=== PATIENT | male | born 1940 | race Caucasian/White ===

== ENCOUNTER 2020-01-16 14:32 | Outpatient (REF) | payer MEDICARE, SELFPAY ==
[2020-01-16 18:02] LABS: Alanine Aminotransferase 17 U/L (0-40); Albumin Level 4.4 g/dL (3.5-5.0); Alkaline Phosphatase 158 U/L (39-117); Anion Gap 15 (12-20); Aspartate Amino Transferase 19 U/L (5-37); Bilirubin Total 0.6 mg/dL (0.0-1.0); Blood Urea Nitrogen 19 mg/dL (9-16); Calcium 8.9 mg/dL (8.4-10.2); Carbon Dioxide 24 mmol/L (22-29); Chloride 98 mmol/L (96-108); Estimated Glomerular Filt Rate > 60; Glucose Random 107 mg/dL (60-115); Potassium 4.4 mmol/l (3.3-5.1); Sodium 133 mmol/L (135-145); Total Protein 7.2 g/dL (6.5-8.0)
[2020-01-16 18:19] LABS: Creatinine Urine 100.04 mg/dL; Microalbum/Creatinine Ratio Ur 15.9 ug/mg cr
[2020-01-17 07:56] LABS: Estimated Average Glucose 117 mg/dL; Hemoglobin A1c % 5.7 %
== END 2020-01-16 14:33 | disposition home or self-care (01) ==
LOC: HO.MANLDS 14:32
PROVIDERS: PCP Internal Medicine; Visit Provider Internal Medicine
DX: E11.9 Type 2 diabetes mellitus without complications (principal)
CPT/HCPCS: 80053; 82043; 83036

== ENCOUNTER 2020-05-26 09:15 | Emergency (ER) | payer MEDICARE, SELFPAY ==
--- NOTE | ~2020-05-26 | XR_ITS ---
EXAMINATION: XR HIP, RIGHT and pelvis CLINICAL INFORMATION: Fall. Pain. COMPARISON: None TECHNIQUE: Two views of the right hip and one view of the pelvis. FINDINGS: Bone alignment is normal. No fracture or dislocation is seen. There is arthritis at both hip joints. There is evidence of atherosclerotic disease. XR/XR hip RT w PEL1V IMPRESSION: No fracture or dislocation.
--- NOTE | ~2020-05-26 | CT_ITS ---
EXAMINATION: CT CHEST WITHOUT CONTRAST CLINICAL INFORMATION: Pain post fall COMPARISON: None TECHNIQUE: Multidetector volumetric CT imaging of the chest was done. Axial MIP volume rendering provided. Sagittal and coronal reformatted images were obtained. This CT examination was performed using dose optimization techniques as appropriate, variously including the following: *Automated exposure control *Adjustment of mA and/or kV according to patient size (this includes techniques or standardized protocols for targeted exams where dose is matched to indication/reason for exam; i.e. extremities or head) *Use of iterative reconstruction technique DLP: 468 mGy-cm FINDINGS: LUNGS: The lung volumes are low. There is subsegmental atelectasis at the right lung base. The lungs are otherwise clear. 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 The heart does not appear enlarged. The thoracic aorta is tortuous. There is no pericardial effusion. There are no enlarged mediastinal lymph nodes. PLEURA: There is a small to moderate right pleural effusion. There is no left pleural effusion. There is no pneumothorax. AXILLA: No lymphadenopathy. 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 There are small calcifications in the left kidney questionable for stones. There is evidence of atherosclerotic disease. OSSEOUS STRUCTURES: There are right third through 11th rib fractures that appear recent or acute. There is increased thoracic kyphosis. There is a severe T10 vertebral body compression fracture. There is a moderate T9 vertebral body compression fracture of the inferior endplate. There are also mild compression fractures of the superior endplate of the T5, T6 and T7 vertebral bodies. CT/CT chest wo con IMPRESSION: Small to moderate right pleural effusion. Multiple recent right third through 11th rib fractures. Increased thoracic kyphosis and multiple thoracic spine compression fractures.
--- NOTE | ~2020-05-26 | CT_ITS ---
EXAMINATION: HEAD AND CERVICAL SPINE CT CLINICAL INFORMATION: Trauma. Fall. COMPARISON: None TECHNIQUE: Axial images through the head and cervical spine without contrast. Sagittal and coronal reconstructions on the technologist workstation were performed. Patient dose 959+3 7 3 mg/cm. FINDINGS: Head CT: There is a small subdural hematoma adjacent to the left frontal parietal and temporal lobes. This measures maximum 6 mm in thickness axial image 64 series 13. There is a small amount of extra-axial hemorrhage at the base of the left frontal lobe near the anterior falx as well axial image 85 series 13. There is question of a small amount of hemorrhage versus beam hardening artifact at the base of the right frontal lobe as well axial image 90 series 13. The ventricles and extra-axial CSF spaces are prominent suggestive of generalized atrophy. There is nonspecific periventricular white matter disease. No mass, mass effect or infarct is seen. There is soft tissue swelling over the vertex. No skull fracture is seen. Visualized paranasal sinuses, mastoid air cells and middle ears are clear. Cervical spine CT: There is fracture dislocation at C1-C2. The head is tilted to the left and there is curvature of the proximal cervical spine to the right and distal cervical and proximal thoracic spine to the left. There is a fracture of the posterior arch 4 lamina of C1. There is a type II/type III dens fracture. This involves the midportion of the dens and extends into the C2 vertebral body. There is a fracture of the spinous process of C2. There is abnormal articulation with 9 mm anterior subluxation of the lateral mass of C2 with respect to C1 on the right. There is question of a small evulsion fracture of C1 at the C1 right lateral mass C2 articulation. There is mild 2 mm anterior subluxation of C3 with respect to C4. There is degenerative spondylosis and degenerative disc disease at C4-C5, C5-C6 and C6-C7. There is bilateral multilevel facet arthritis. There is a mild compression fracture of the superior endplate of the T1 vertebral body. There is prevertebral soft tissue swelling adjacent to the proximal cervical spine. There is bilateral carotid calcification. CT/CT cervical spine wo con IMPRESSION: Head CT: Small left subdural hematoma. Small extra-axial hemorrhage adjacent to the base of the left frontal lobe near the falx. Question small amount of extra-axial hemorrhage adjacent to the base of the right frontal lobe versus beam hardening artifact. No mass effect seen. Generalized atrophy and nonspecific periventricular white matter disease. Soft tissue swelling over the vertex. Cervical spine CT: Fracture and dislocation/subluxation at C1-C2. Severe head tilt to the left and subluxation of the right C1 lateral mass articulation. Fracture of the left posterior ring of C1. Probable avulsion fracture of C1 at the right C1 lateral mass articulation. Complex type II/III dens fracture and C2 spinous process fracture. Mild T1 superior endplate compression fracture. Findings were communicated to Dr. Cuello by telephone on 05/26/2020 at 11:50 AM.
[2020-05-26 09:32] VITALS: BP 150/62; PULSE 79; RESP 16; TEMP 36.5; O2SAT 96; BMI 23.7
--- NOTE | 2020-05-26 09:33 | ECG_ITS ---
Test Reason : FALL Blood Pressure : / mmHG Vent. Rate : 079 BPM Atrial Rate : 079 BPM P-R Int : 238 ms QRS Dur : 142 ms QT Int : 418 ms P-R-T Axes : 022 083 023 degrees QTc Int : 479 ms Artfiact in tracing Sinus rhythm with 1st degree A-V block Right bundle branch block Abnormal ECG No previous ECGs available Referred By: Haley Cuello Electronically Signed By:JOSE GUTIERRES
--- NOTE | 2020-05-26 09:35 | ED_ITS ---
HPI - Fall General Chief Complaint: Fall Stated Complaint: DIZZINESS,FALL,HEAD LAC Time Seen by Provider: 05/26/20 09:17 Source: patient and EMS Mode of arrival: EMS Limitations: other (confusion some cognitive impairment) History of Present Illness HPI Narrative: 79 yo male with Parkinson's, DM, ?CAD on aspirin and plavix, falls, was standing and lost balance fell to ground hit head no LOC c/o pain to head and R hip - son was trying to help him to the bathroom and was stubborn to get help, was supposed to be using a walker, fell after declining son's help then fell after losing balance complaint: fall 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) Fall from: standing Fall witnessed: yes, by family Place fall occurred: home Loss of consciousness: none Prolonged down time: no Symptoms prior to fall: dizziness Context: history of frequent falls Location of injury: head and other (R hip) Severity: moderate Quality: dull Associated symptoms (after fall): headache and neck pain Related Data Home Medications Medication Instructions Recorded Confirmed Lactobacillus rhamnosus GG 1 cap PO BID 05/26/20 05/26/20 [Culturelle] acetaminophen 1,000 mg PO Q8H PRN 05/26/20 05/26/20 albuterol sulfate [ProAir HFA] 2 puff INHALATION Q6H PRN 05/26/20 05/26/20 amoxicillin-pot clavulanate 1 tab PO BID 05/26/20 05/26/20 [Augmentin] aspirin 81 mg PO DAILY 05/26/20 05/26/20 clopidogrel 75 mg PO DAILY 05/26/20 05/26/20 docusate sodium [Colace] 100 mg PO BID 05/26/20 05/26/20 famotidine 20 mg PO DAILY 05/26/20 05/26/20 levothyroxine 100 mcg PO DAILY@0630 05/26/20 05/26/20 lidocaine 1 patch TOPICAL DAILY 05/26/20 05/26/20 metoprolol tartrate 25 mg PO BID 05/26/20 05/26/20 nitroglycerin 0.4 mg SUBLINGUAL Q5M PRN 05/26/20 05/26/20 polyethylene glycol 3350 [Miralax] 17 g PO BID 05/26/20 05/26/20 ranolazine [Ranexa] 500 mg PO BID 05/26/20 05/26/20 sennosides [senna] 8.6 mg PO BID 05/26/20 05/26/20 tamsulosin 0.8 mg PO DAILY 05/26/20 05/26/20 Allergies Allergy/AdvReac Type Severity Reaction Status Date / Time No Known Allergies Allergy Verified 05/26/20 09:51 Review of Systems Review of Systems: Constitutional : No Fever, No Chills ENT/Mouth : No Ear Pain, No Hoarseness, No sore throat Eyes: No Eye Pain, No Swelling, No Redness, No Foreign Body Cardiovascular : No Chest Pain, No SOB Respiratory : No Cough, No Dyspnea Gastrointestinal : No Nausea, No Vomiting, No Diarrhea, No abdominal Pain Genitourinary : No Dysuria, No Hematuria Musculoskeletal : positive joint pain, No Myalgias, No Joint Swelling Skin : pos Skin lacerations, No rash Neuro : pos Weakness, No Numbness, No Loss of Consciousness, No Dizziness, pos Headache Psych : No Anxiety/Panic, No Depression Heme/Lymph: no easy bruising, no Lymphadenopathy Endocrine : No Polyuria, No Polydipsia All other systems reviewed and are negative [facility] Past Medical History Attestation statement: The following information was validated with the patient. Medical History (Updated 05/26/20 @ 12:19 by Haley Cuello DO) Diabetes GERD (gastroesophageal reflux disease) Neck muscle weakness Parkinson disease Social History Social History (Updated 05/26/20 @ 09:55 by Haley Cuello DO) Alcohol intake: unknown Smoking Status: Smoker, status unknown Use of substances other than those prescribed or required for medical reasons: Unknown Advance Directives: No Advance Directives Information Provided: No Physical Exam Vital Signs: Vital Signs: Last Vital Signs Temp 97.6 F 05/26/20 11:29 Pulse 85 05/26/20 12:08 Resp 14 05/26/20 12:08 BP 150/83 H 05/26/20 12:08 Pulse Ox 95 05/26/20 12:08 Body Mass Index 23.7 Appearance: Alert. Oriented X2. Anxious mild acute distress. Eyes: Pupils equal, round and reactive to light. ENT: Pharynx normal. 8 cm steady ooze from scalp laceration not pulsatile Neck: c/o pain to upper part of neck, collar in place though he is kyphotic and rotated he keeps reaching to take the collar off patient is rotated and hunched over CVS: Normal heart rate and rhythm. Pulses normal. Respiratory: No respiratory distress. Breath sounds decreased Abdomen: Soft and non-tender. Skin: Skin warm and dry. Normal skin color. Extremities: No lower extremity edema. R hip ttp slightly shortened Neuro: Oriented X 2. No motor deficit. No sensory deficit. Course Course Course Narrative: bleeding resolved after 6 igor lido with epi and figure of 8 suture - he was oozing steadily on arrival there was no pulsation and it was not spurting call to family to discuss concerning radiology findings, small left SDH no hemorrhage, R 3-11 rib fractures, C2 dens fracture not displaced C2 spinous process fracture, C1 fx posterior ring on left slightly displaced, multiple thoracic spine fractures discussed with daughter Shana [phone] given traumatic injuries wants to discuss with the family plan of care unsure if she wants him to be transferred to [facility] family requesting transfer to [facility] at this time given injuries call to [facility] 1202pm transfer line pending trauma call back Dr. Coker send as trauma transfer - ED to ED discussed with his daughter notes his neck is normally rotated, he was supposed to have strengthening due to weak muscles but never did them. HEAD and Cervical spine CT Head CT: Small left subdural hematoma. Small extra-axial hemorrhage adjacent to the base of the left frontal lobe near the falx. Question small amount of extra-axial hemorrhage adjacent to the base of the right frontal lobe versus beam hardening artifact. No mass effect seen. Generalized atrophy and nonspecific periventricular white matter disease. Soft tissue swelling over the vertex. Cervical spine CT: Fracture and dislocation/subluxation at C1-C2. Severe head tilt to the left and subluxation of the right C1 lateral mass articulation. Fracture of the left posterior ring of C1. Probable avulsion fracture of C1 at the right C1 lateral mass articulation. Complex type II/III dens fracture and C2 spinous process fracture. Mild T1 superior endplate compression fracture. CHEST CT FINDINGS: LUNGS: The lung volumes are low. There is subsegmental atelectasis at the right lung base. The lungs are otherwise clear. 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 The heart does not appear enlarged. The thoracic aorta is tortuous. There is no pericardial effusion. There are no enlarged mediastinal lymph nodes. PLEURA: There is a small to moderate right pleural effusion. There is no left pleural effusion. There is no pneumothorax. AXILLA: No lymphadenopathy. 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 There are small calcifications in the left kidney questionable for stones. There is evidence of atherosclerotic disease. OSSEOUS STRUCTURES: There are right third through 11th rib fractures that appear recent or acute. There is increased thoracic kyphosis. There is a severe T10 vertebral body compression fracture. There is a moderate T9 vertebral body compression fracture of the inferior endplate. There are also mild compression fractures of the superior endplate of the T5, T6 and T7 vertebral bodies. CT/CT chest wo con IMPRESSION: Small to moderate right pleural effusion. Multiple recent right third through 11th rib fractures. Increased thoracic kyphosis and multiple thoracic spine compression fractures. Procedures Laceration Laceration 1: Site: scalp Size (cm): 8 Description: flap Depth: simple, single layer Local Anesthetic: lidocaine 1% and with epi Amount of anesthesia used (mL): 7 Pre-repair: wound explored and irrigated extensively Skin layer closed with: nylon Size (cm): 3-0 and other (6 igor) Number of sutures: 1 Technique: other (figure 8 to stop bleeding) MDM - Fall MDM Narrative Medical decision making narrative: 79 yo male with CAD on aspirin and plavix, GERD, parkinson's frequent falls here with another fall stood up and lost balance, c/o head laceration and R hip pain as well as neck pain - family told EMS he was falling recently, no LOC noted - stat repair of laceration as it is b leeding continuously, labs, EKG, CT head/cspine/chest, R hip for trauma, dispo per results and findings Lab Data Result diagrams: 05/26/20 10:04 05/26/20 10:04 Labs: Lab Results 05/26/20 05/26/20 05/26/20 Range/Units 09:58 10:04 10:04 WBC 9.7 (4.8-10.8) X10*3/uL RBC 3.96 L (4.60-5.80) X10*6/uL Hgb 11.6 L (14.0-18.0) g/dl Hct 34.9 L (42-52) % MCV 88.1 (80-98) fL MCH 29.3 (27.0-33.0) pg MCHC 33.2 (31.0-36.0) g/dl RDW 14.7 (11.0-16.0) % Plt Count 291 (160-400) X10*3/uL MPV 8.8 L (9.4-12.4) fL Immature Gran % (Auto) 1.8 H (0.0-0.4) % Neut % (Auto) 81.5 H (45-73) % Lymph % (Auto) 8.0 L (20-40) % Waller % (Auto) 7.7 (2-11) % Eos % (Auto) 0.7 (0-4) % Baso % (Auto) 0.3 (0-2) % Lymph # (Auto) 0.8 L (1.2-4.9) X10*3/uL Waller # (Auto) 0.7 (0.1-1.2) X10*3/uL Eos # (Auto) 0.1 (0.0-0.4) X10*3/uL Baso # (Auto) 0.0 (0.0-0.2) X10*3/uL Abs Immat Gran (auto) 0.17 H (0.00-0.03) X10*3/uL Absolute Neuts (auto) 7.9 (2.0-8.3) X10*3/uL Absolute Nucleated RBC 0.000 (0.0-0.012) X10*3/uL Nucleated RBC % (auto) 0.0 (0.0-0.2) /100WBC PT 12.7 (10.8-13.0) SEC INR 1.1 (0.9-1.1) APTT 32.0 (24.1-38.0) SEC VBG pH (7.32-7.43) VBG pCO2 mmHg VBG pO2 mmHg VBG HCO3 mmol/L VBG O2 Saturation % VBG Base Excess mmol/L Sodium (135-145) mmol/L Potassium (3.3-5.1) mmol/L Chloride (96-108) mmol/L Carbon Dioxide (22-29) mmol/L Anion Gap (12-20) BUN (9-16) mg/dL Creatinine (0.5-1.4) mg/dL Estim Creat Clear Calc Estimated GFR Random Glucose (60-115) mg/dL Lactic Acid (0.5-2.0) mmol/L Calcium (8.4-10.2) mg/dL Magnesium (1.6-2.6) mg/dL Total Bilirubin (0.0-1.0) mg/dL Direct Bilirubin (0.0-0.5) mg/dL AST (5-37) U/L ALT (0-40) U/L Alkaline Phosphatase (39-117) U/L Total Creatine Kinase (38-174) U/L Troponin I High Sens (<3.5-35.0) ng/L Total Protein (6.5-8.0) g/dL Albumin (3.5-5.0) g/dL COVID-19 ([facility]) Negative (Negative) COVID-19 Clin Com See Note 05/26/20 05/26/20 05/26/20 Range/Units 10:04 10:04 10:04 WBC (4.8-10.8) X10*3/uL RBC (4.60-5.80) X10*6/uL Hgb (14.0-18.0) g/dl Hct (42-52) % MCV (80-98) fL MCH (27.0-33.0) pg MCHC (31.0-36.0) g/dl RDW (11.0-16.0) % Plt Count (160-400) X10*3/uL MPV (9.4-12.4) fL Immature Gran % (Auto) (0.0-0.4) % Neut % (Auto) (45-73) % Lymph % (Auto) (20-40) % Waller % (Auto) (2-11) % Eos % (Auto) (0-4) % Baso % (Auto) (0-2) % Lymph # (Auto) (1.2-4.9) X10*3/uL Waller # (Auto) (0.1-1.2) X10*3/uL Eos # (Auto) (0.0-0.4) X10*3/uL Baso # (Auto) (0.0-0.2) X10*3/uL Abs Immat Gran (auto) (0.00-0.03) X10*3/uL Absolute Neuts (auto) (2.0-8.3) X10*3/uL Absolute Nucleated RBC (0.0-0.012) X10*3/uL Nucleated RBC % (auto) (0.0-0.2) /100WBC PT (10.8-13.0) SEC INR (0.9-1.1) APTT (24.1-38.0) SEC VBG pH (7.32-7.43) VBG pCO2 mmHg VBG pO2 mmHg VBG HCO3 mmol/L VBG O2 Saturation % VBG Base Excess mmol/L Sodium 131 L (135-145) mmol/L Potassium 4.5 (3.3-5.1) mmol/L Chloride 98 (96-108) mmol/L Carbon Dioxide 27 (22-29) mmol/L Anion Gap 11 L (12-20) BUN 19 H (9-16) mg/dL Creatinine 0.82 (0.5-1.4) mg/dL Estim Creat Clear Calc 74.1 Estimated GFR > 60 Random Glucose 119 H (60-115) mg/dL Lactic Acid 0.7 (0.5-2.0) mmol/L Calcium 8.0 L D (8.4-10.2) mg/dL Magnesium 2.1 (1.6-2.6) mg/dL Total Bilirubin 0.8 (0.0-1.0) mg/dL Direct Bilirubin 0.3 (0.0-0.5) mg/dL AST 20 (5-37) U/L ALT 24 (0-40) U/L Alkaline Phosphatase 205 H D (39-117) U/L Total Creatine Kinase 118 (38-174) U/L Troponin I High Sens < 3.5 (<3.5-35.0) ng/L Total Protein 5.9 L (6.5-8.0) g/dL Albumin 3.4 L D (3.5-5.0) g/dL COVID-19 ([facility]) (Negative) COVID-19 Clin Com 05/26/20 Range/Units 10:04 WBC (4.8-10.8) X10*3/uL RBC (4.60-5.80) X10*6/uL Hgb (14.0-18.0) g/dl Hct (42-52) % MCV (80-98) fL MCH (27.0-33.0) pg MCHC (31.0-36.0) g/dl RDW (11.0-16.0) % Plt Count (160-400) X10*3/uL MPV (9.4-12.4) fL Immature Gran % (Auto) (0.0-0.4) % Neut % (Auto) (45-73) % Lymph % (Auto) (20-40) % Waller % (Auto) (2-11) % Eos % (Auto) (0-4) % Baso % (Auto) (0-2) % Lymph # (Auto) (1.2-4.9) X10*3/uL Waller # (Auto) (0.1-1.2) X10*3/uL Eos # (Auto) (0.0-0.4) X10*3/uL Baso # (Auto) (0.0-0.2) X10*3/uL Abs Immat Gran (auto) (0.00-0.03) X10*3/uL Absolute Neuts (auto) (2.0-8.3) X10*3/uL Absolute Nucleated RBC (0.0-0.012) X10*3/uL Nucleated RBC % (auto) (0.0-0.2) /100WBC PT (10.8-13.0) SEC INR (0.9-1.1) APTT (24.1-38.0) SEC VBG pH 7.37 (7.32-7.43) VBG pCO2 45 mmHg VBG pO2 32 mmHg VBG HCO3 26 mmol/L VBG O2 Saturation 50.0 % VBG Base Excess 0.8 mmol/L Sodium (135-145) mmol/L Potassium (3.3-5.1) mmol/L Chloride (96-108) mmol/L Carbon Dioxide (22-29) mmol/L Anion Gap (12-20) BUN (9-16) mg/dL Creatinine (0.5-1.4) mg/dL Estim Creat Clear Calc Estimated GFR Random Glucose (60-115) mg/dL Lactic Acid (0.5-2.0) mmol/L Calcium (8.4-10.2) mg/dL Magnesium (1.6-2.6) mg/dL Total Bilirubin (0.0-1.0) mg/dL Direct Bilirubin (0.0-0.5) mg/dL AST (5-37) U/L ALT (0-40) U/L Alkaline Phosphatase (39-117) U/L Total Creatine Kinase (38-174) U/L Troponin I High Sens (<3.5-35.0) ng/L Total Protein (6.5-8.0) g/dL Albumin (3.5-5.0) g/dL COVID-19 ([facility]) (Negative) COVID-19 Clin Com ECG Data Attestation: I personally reviewed and interpreted this ECG as follows: ECG interpretation date: 05/26/20 ECG interpretation time: 10:11 Interpretation: Rate: 79 Rhythm: NSR with 1st degree AVB Bivalve: normal Normal P waves. Normal KADEN. RBB ST T wave : nonspecific, no NEELAM qTC: normal prior studies: no prior, artifact noted The study has been interpreted contemporaneously by me. . Critical Care Time Critical Care Time Critical Care Time: Yes Total Critical Care Time: 35 Attestation: medical consult I attest to this time spent taking care of the patient Discharge Plan Discharge Clinical Impression: Acute subdural hematoma C2 cervical fracture Qualifiers: Encounter type: initial encounter Fracture type: closed Fracture morphology: other dens Fracture alignment: nondisplaced Qualified Code(s): S12.121A - Other nondisplaced dens fracture, initial encounter for closed fracture Cervical spine fracture Qualifiers: Encounter type: initial encounter Cervical vertebra fracture level: C1 Fracture type: closed Fracture morphology: posterior arch Fracture alignment: displaced Qualified Code(s): S12.030A - Displaced posterior arch fracture of first cervical vertebra, initial encounter for closed fracture Fracture, ribs Qualifiers: Encounter type: initial encounter Fracture type: closed Laterality: right Qualified Code(s): S22.41XA - Multiple fractures of ribs, right side, initial encounter for closed fracture Patient Disposition: [facility]ly [facility], [facility]1983 Hospital Transfer Details: [facility] Prescriptions: No Action clopidogrel 75 mg Tablet 75 mg PO DAILY RF: 0 aspirin 81 mg Tablet,Delayed Release (Dr/Ec) 81 mg PO DAILY RF: 0 famotidine 20 mg Tablet 20 mg PO DAILY RF: 0 docusate sodium [Colace] 100 mg Capsule 100 mg PO BID RF: 0 levothyroxine 100 mcg Tablet 100 mcg PO DAILY@0630 RF: 0 sennosides [senna] 8.6 mg Tablet 8.6 mg PO BID RF: 0 lidocaine 4 % Adhesive Patch,Medicated 1 patch TOPICAL DAILY RF: 0 acetaminophen 500 mg Tablet 1,000 mg PO Q8H PRN (Reason: Pain (Scale Score 1-3)) RF: 0 tamsulosin 0.4 mg Capsule 0.8 mg PO DAILY RF: 0 polyethylene glycol 3350 [Miralax] 17 gram/dose Powder 17 g PO BID RF: 0 metoprolol tartrate 25 mg Tablet 25 mg PO BID RF: 0 ranolazine [Ranexa] 500 mg Tablet Extended Release 12 Hr 500 mg PO BID RF: 0 nitroglycerin 0.4 mg Tablet, Sublingual 0.4 mg SUBLINGUAL Q5M PRN (Reason: Chest Pain) RF: 0 albuterol sulfate [ProAir HFA] 90 mcg/actuation Hfa Aerosol Inhaler 2 puff INHALATION Q6H PRN (Reason: Shortness Of Breath) RF: 0 Culturelle 10 billion cell Capsule 1 cap PO BID RF: 0 amoxicillin-pot clavulanate [Augmentin] 875-125 mg Tablet 1 tab PO BID RF: 0
[2020-05-26 10:11] LABS: MANUAL DIFF FLAG NO
[2020-05-26 10:12] LABS: Basophils Percent Auto 0.3 % (0-2); Eosinophils Absolute Auto 0.1 X10*3/uL (0.0-0.4); Eosinophils Percent Auto 0.7 % (0-4); Hematocrit 34.9 % (42-52); Hemoglobin 11.6 g/dl (14.0-18.0); Imm Gran Abs Auto 0.17 X10*3/uL (0.00-0.03); Imm Gran Pct Auto 1.8 % (0.0-0.4); Lymphocytes Absolute Auto 0.8 X10*3/uL (1.2-4.9); Mean Corpuscular HGB Conc 33.2 g/dl (31.0-36.0); Mean Corpuscular Hemoglobin 29.3 pg (27.0-33.0); Mean Corpuscular Volume 88.1 fL (80-98); Mean Platelet Volume 8.8 fL (9.4-12.4); Monocytes Absolute Auto 0.7 X10*3/uL (0.1-1.2); Monocytes Percent Auto 7.7 % (2-11); Neutrophils Absolute Auto 7.9 X10*3/uL (2.0-8.3); Neutrophils Percent Auto 81.5 % (45-73); Platelet Count 291 X10*3/uL (160-400); Red Blood Count 3.96 X10*6/uL (4.60-5.80); Red Cell Distribution Width 14.7 % (11.0-16.0); White Blood Count 9.7 X10*3/uL (4.8-10.8)
[2020-05-26 10:21] LABS: INTERNATIONAL NORM RATIO 1.1 (0.9-1.1); Prothrombin Time 12.7 SEC (10.8-13.0)
[2020-05-26 10:23] LABS: Base Excess VBG 0.8 mmol/L; HCO3 VBG 26 mmol/L; PCO2 VBG 45 mmHg; PO2 VBG 32 mmHg; pH VBG 7.37 (7.32-7.43)
[2020-05-26 10:30] LABS: COVID-19 Test Negative (Negative)
[2020-05-26 10:37] LABS: Lactic Acid 0.7 mmol/L (0.5-2.0)
[2020-05-26 10:50] LABS: Alanine Aminotransferase 24 U/L (0-40); Albumin Level 3.4 g/dL (3.5-5.0); Alkaline Phosphatase 205 U/L (39-117); Anion Gap 11 (12-20); Aspartate Amino Transferase 20 U/L (5-37); Bilirubin Direct 0.3 mg/dL (0.0-0.5); Bilirubin Total 0.8 mg/dL (0.0-1.0); Blood Urea Nitrogen 19 mg/dL (9-16); Carbon Dioxide 27 mmol/L (22-29); Chloride 98 mmol/L (96-108); Creatinine Clr Calc Pharmacy 74.1; Estimated Glomerular Filt Rate > 60; Glucose Random 119 mg/dL (60-115); Magnesium 2.1 mg/dL (1.6-2.6); Potassium 4.5 mmol/L (3.3-5.1); Sodium 131 mmol/L (135-145); Total Protein 5.9 g/dL (6.5-8.0); Troponin-I High Sensitivity < 3.5 ng/L (<3.5-35.0)
--- NOTE | 2020-05-26 10:52 | PC.NURSE ---
late entry 05/26/2020 0925 lac to top of head with uncontrolled bleeding, Dr. Cuello to bedside and placed 6 igor and figure 8 sutures.
--- NOTE | 2020-05-26 11:08 | PC.NURSE ---
Spoke with and daughter, rodolfo, would like to be contacted when dispo decision is made. As requested, please try home phone first , and then daughter cell at
[2020-05-26 11:29] VITALS: BP 135/81; PULSE 82; RESP 20; TEMP 36.4; O2SAT 94
--- NOTE | 2020-05-26 11:40 | PC.NURSE ---
C-spine collar found to be off, re applied per Dr. Cuello.
[2020-05-26 12:08] VITALS: BP 150/83; PULSE 85; RESP 14; O2SAT 95
[2020-05-26 12:18] VITALS: RESP 18
[2020-05-26] MEDS: Morphine Sulfate 2 MG/ML CARTRIDGE 1 MG IVPUSH (12:18)
[2020-05-26 12:21] LABS: Glucose Urine UA NEG (NEG); Leukocyte Esterase Urine 1+ (NEG); Nitrite Urine NEG (NEG); Specific Gravity - Urine 1.015 (1.005-1.025); UACC Culture Trigger YES; Urine Blood NEG (NEG); Urine Ketones NEG (NEG); Urine Protein NEG (NEG-TRACE)
[2020-05-26 12:22] LABS: Appearance Urine HAZY; Color Urine DARK YELLOW
[2020-05-26 12:31] LABS: Bacteria Urine TRACE /LPF; Calcium Oxalate Crystals Urine TRACE /LPF; RBC Urine 0 /HPF (0); Squamous Epithelial Cell Urine TRACE /LPF; WBC Urine 30-49 /HPF (0-4)
--- NOTE | 2020-05-26 12:33 | PC.NURSE ---
Spoke with [facility] at 1233. Awaiting call back from Nurse. [facility] made aware patient is on their way via EMS.
== END 2020-05-26 12:39 | disposition short-term general hospital (02) ==
PROVIDERS: Emergency Provider Emergency Medicine; PCP Internal Medicine
DX: S06.5X9A Traumatic subdural hemorrhage with loss of consciousness of unspecified duration, initial encounter (principal); S12.121A Other nondisplaced dens fracture, initial encounter for closed fracture; S12.030A Displaced posterior arch fracture of first cervical vertebra, initial encounter for closed fracture; S22.41XA Multiple fractures of ribs, right side, initial encounter for closed fracture; S22.078A Other fracture of T9-T10 vertebra, initial encounter for closed fracture; S22.058A Other fracture of T5-T6 vertebra, initial encounter for closed fracture; S22.068A Other fracture of T7-T8 thoracic vertebra, initial encounter for closed fracture; W01.0XXA Fall on same level from slipping, tripping and stumbling without subsequent striking against object, initial encounter; Z91.81 History of falling; Z20.822 Contact with and (suspected) exposure to COVID-19; M40.294 Other kyphosis, thoracic region; J90 Pleural effusion, not elsewhere classified; Q43.3 Congenital malformations of intestinal fixation; N20.0 Calculus of kidney; G20 Parkinson's disease; E11.9 Type 2 diabetes mellitus without complications; I25.10 Atherosclerotic heart disease of native coronary artery without angina pectoris; Y93.89 Activity, other specified; Y92.012 Bathroom of single-family (private) house as the place of occurrence of the external cause; Y99.9 Unspecified external cause status; Z79.82 Long term (current) use of aspirin; Z79.02 Long term (current) use of antithrombotics/antiplatelets; S01.01XA Laceration without foreign body of scalp, initial encounter; Z79.899 Other long term (current) drug therapy
CPT/HCPCS: 12034; 36415; 70450; 71250; 72125; 73502; 80048; 80076; 81001; 81003; 82550; 82803; 83605; 83735; 84484; 85025; 85610; 85730; 87040; 87086; 87635; 93005; 96374; 99285; 99291; J2270